=== PATIENT | female | born 1940 | race Caucasian/White ===

== ENCOUNTER → 2017-01-20 | Outpatient (CLI) | payer OTHER ==
[~2017-01-20] MED LIST: ATVUNK; PXLUNK
[2017-01-20 17:50] LABS: BLOOD UREA NITROGEN 15 mg/dl (7-18); CALCIUM 8.8 mg/dl (8.5-10.1); CARBON DIOXIDE 30 mmol/L (21-32); CHLORIDE 106 mmol/L (98-107); GLUCOSE 92 mg/dl (70-99); POTASSIUM 4.3 mmol/L (3.5-5.1); SODIUM 142 mmol/L (136-145)
[2017-01-20 17:54] LABS: CHOLESTEROL 191 mg/dl (0-200); CHOLESTEROL/HDL RATIO 3.2; HDL CHOLESTEROL 59 mg/dl; LDL CHOLESTEROL CALCULATED 101 mg/dl; TRIGLYCERIDES 156 mg/dl (0-150); VERY LOW DENSITY LIPOPROT CALC 31 mg/dl
== END | disposition home or self-care (01) ==
LOC: C.LABPVFM 11:24
PROVIDERS: ATTEND Nurse Practitioner
DX: Z13.1 Encounter for screening for diabetes mellitus (principal); E78.5 Hyperlipidemia, unspecified